=== PATIENT | female | born 2000 | race Caucasian/White ===

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

== ENCOUNTER 2022-02-21 15:47 | Emergency (ER) | payer OTHER, SELFPAY ==
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
[2022-02-21 15:56] VITALS: BP 137/74; PULSE 80; RESP 14; TEMP 36.9; O2SAT 100
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
[2022-02-21 16:05] VITALS: BP 137/74; PULSE 80; RESP 14; TEMP 36.9; O2SAT 100
== END 2022-02-21 16:44 | disposition home or self-care (01) ==
PROVIDERS: Emergency Provider Nurse Practitioner Family
DX: S16.1XXA Strain of muscle, fascia and tendon at neck level, initial encounter (principal); Y04.8XXA Assault by other bodily force, initial encounter; J45.909 Unspecified asthma, uncomplicated
CPT/HCPCS: 72050; 99213; G0463